=== PATIENT | male | born 1980 | race Caucasian/White ===

== ENCOUNTER → 2022-03-04 08:41 | Outpatient (BNVA) | payer OTHER, SELFPAY | PROVIDERS: PCP Family Medicine; Visit Provider Nurse Practitioner Family | DX: R56.9 Unspecified convulsions (principal); R25.1 Tremor, unspecified; F41.9 Anxiety disorder, unspecified; Z72.820 Sleep deprivation | CPT/HCPCS: 99202 ==

== ENCOUNTER 2022-03-30 13:02 | Outpatient (REF) | payer OTHER, SELFPAY ==
--- NOTE | 2022-03-30 13:07 | EEG_ITS ---
This is a 16-channel EEG with an EKG lead. The patient is reported awake during the tracing. Background EEG rhythm is low to medium amplitude fast with no obvious asymmetry or paroxysmal tendency. Photic stimulation does not produce any significant driving. Hyperventilation is not performed. Cardiac lead does not reveal any significant abnormality. IMPRESSION: Unremarkable EEG. MD JOSE JUAN Abad/ATUL / [id number]
== END 2022-03-30 13:03 | disposition home or self-care (01) ==
LOC: HO.NEURO 13:02
PROVIDERS: Visit Provider Nurse Practitioner Family
DX: R56.9 Unspecified convulsions (principal)
CPT/HCPCS: 95816

== ENCOUNTER 2022-04-04 10:27 | Outpatient (REF) | payer OTHER, SELFPAY ==
--- NOTE | ~2022-04-04 | MR_ITS ---
EXAMINATION: MRI OF THE BRAIN WITHOUT CONTRAST. CLINICAL INFORMATION: 41-year-old with unspecified convulsions. Self-reported history of seizures since 2019 on medication. COMPARISON: None TECHNIQUE: Multiplanar multisequence MR imaging of the brain was done without IV contrast. FINDINGS: Brain Volume: Within normal limits within the limitations of qualitative assessment. Structural: No malformations. Brain and Meninges: DWI sequence demonstrates no restricted diffusion to suggest acute or subacute cerebral ischemia. Gradient refocused imaging demonstrates no evidence for hemorrhage, hemosiderin staining or unusual/abnormal mineral deposition. The mesial temporal lobe structures are bilaterally symmetric and are normal in morphology and signal intensity. The brain parenchyma is normal in morphology and signal intensity. Quiles-white matter differentiation is well maintained. No extra-axial fluid collections, space-occupying process or mass effect are identified. Ventricles and Subarachnoid Spaces: The ventricular system and subarachnoid spaces are within normal limits without hydrocephalus. Orbital Structures: The visualized orbital structures are grossly unremarkable within the limitations of the study. Vascular: Signal voids are noted in the visualized major intracranial vessels. Osseous Structures, Sinuses/Mastoids, Extracranial Soft Tissues: Pansinus mucosal thickening is noted. Bony structures appear grossly intact. MR/MR head/brain wo con IMPRESSION: Normal noncontrast MRI of the brain.
== END 2022-04-04 10:28 | disposition home or self-care (01) ==
LOC: HO.MRI 10:27
PROVIDERS: Visit Provider Nurse Practitioner Family
DX: R56.9 Unspecified convulsions (principal); R25.1 Tremor, unspecified
CPT/HCPCS: 70551; 99212

== ENCOUNTER → 2022-06-06 13:06 | Outpatient (BNVA) | payer OTHER, SELFPAY | PROVIDERS: PCP Family Medicine; Visit Provider Nurse Practitioner Family | DX: R25.1 Tremor, unspecified (principal); R56.9 Unspecified convulsions; F41.9 Anxiety disorder, unspecified | CPT/HCPCS: 99212 ==

== ENCOUNTER → 2022-08-08 14:27 | Outpatient (BNVA) | payer OTHER, SELFPAY | PROVIDERS: PCP Family Medicine; Visit Provider Nurse Practitioner Family | DX: R25.1 Tremor, unspecified (principal); R56.9 Unspecified convulsions; F41.9 Anxiety disorder, unspecified; Z79.899 Other long term (current) drug therapy | CPT/HCPCS: 99212 ==

== ENCOUNTER → 2022-10-07 13:57 | Outpatient (BNVA) | payer OTHER, SELFPAY | PROVIDERS: PCP Family Medicine; Visit Provider Nurse Practitioner Family | DX: F41.9 Anxiety disorder, unspecified (principal); R25.1 Tremor, unspecified; R56.9 Unspecified convulsions | CPT/HCPCS: 99212 ==

== ENCOUNTER → 2022-12-09 14:25 | Outpatient (BNVA) | payer OTHER, SELFPAY | PROVIDERS: PCP Family Medicine; Visit Provider Nurse Practitioner Family | DX: F41.9 Anxiety disorder, unspecified (principal); R25.1 Tremor, unspecified; R56.9 Unspecified convulsions | CPT/HCPCS: 99212 ==

== ENCOUNTER 2023-02-17 14:22 | Outpatient (AMB) | payer OTHER, SELFPAY ==
[2023-02-17 14:24] VITALS: BP 110/84; PULSE 82; O2SAT 96; BMI 26.0
--- NOTE | 2023-02-17 14:24 | MHC.OFFVIS ---
Intake Vital Signs 02/17/23 14:24 Height 6 ft 2 in Weight 202 lb 4 oz BMI 26.0 BP 110/84 Blood Pressure Location Lt brachial Position Sitting Pulse 82 Pulse Source Pulse Oximeter Pulse Oximetry (%) 96 Oxygen Delivery Method Room Air Intake Visit Reasons: 2m f/u Tremor/HX of seizures Intake Note: Pt presents as a 2 month f/u for tremor, hx of seizures. Beam Saw Operator Required: No Allergies No Known Allergies Allergy (Verified 02/17/23 14:27) HPI HPI Comments History of Present Illness Details 42 y/o male patient presents for follow up of seizure and anxiety. Pt reports that he had 1 seizures on Jan 19 at the end of the day. He fell at the kitchen. He had aura before having seizure, but did not take clonazepam on time. Usually he takes clonazepam when he has aura and it prevents seizure. He uses clonazepam for panic attack also, it helps him to calm down and fall asleep. Pt reports he sleeps better than before with gabapentin 600 mg. He is on fluoxetine for anxiety. He stopped vaping since the last visit. Pt does not work or drive. [facility] Surgical History History of surgery on lower extremity No history of previous surgery Family History Mother No problems noted. Father No problems noted. Social History (Updated 02/17/23 @ 14:28 by Selma Doll CMA) Alcohol intake: former Patient Tobacco Use Status: Former Tobacco user Review of Systems Const All systems reviewed & are unremarkable except as noted in HPI and below ENT Reports Normal hearing present Neuro Reports Normal hearing present Physical Exam Vital Signs: Last Vital Signs Pulse 82 02/17/23 14:24 BP 110/84 02/17/23 14:24 Pulse Ox 96 02/17/23 14:24 Oxygen Delivery Method Room Air 02/17/23 14:24 BMI result Body Mass Index 26.0 Const General: cooperative and no acute distress Nutritional Appearance: average body habitus Orientation/consciousness: patient oriented x3 Limitations: other limitations (seizure) Neck Neck: Yes full ROM and Yes supple Neuro General: patient oriented x3, tone normal, moves all extremities and no focal motor deficits Cranial nerves: Yes Bilaterally intact EOM present, Yes Normal facial strength present, Yes Midline tongue present, Yes Normal hearing present, Yes Ability to bilaterally rotate head present and Yes Ability to bilaterally elevate shoulders present Cognition (Neuro): normal cognition Gait exam (Neuro): Other gait observations present (Pt mildy shaky with walking. ) Motor exam (neuro): 5/5 motor strength present throughout, Pronator motor function not present and Other motor observations present (mild bilateral hands posturing tremor) Deep tendon reflexes (DTR's): Right triceps reflex intensity grade: 2+, Left triceps reflex intensity grade: 2+, Rt Biceps (C5, C6): 2+, Left biceps reflex intensity grade: 2+, Right brachioradialis reflex intensity grade: 2+, Left brachioradialis reflex intensity grade: 2+, Right patellar reflex intensity grade: 2+ and Left patellar reflex intensity grade: 2+ Coordination: [id number] test normal Psych Appearance: grossly normal Speech and movement: Clear speech present Affect: Anxious affect present Attitude: cooperative Assessment & Plan Assessment & Plan (1) Anxiety: Code(s): F41.9 - Anxiety disorder, unspecified (2) Tremor: Code(s): R25.1 - Tremor, unspecified (3) Seizure: Code(s): R56.9 - Unspecified convulsions Plan Continue to take keppra 1000 mg BID and continue to take gabapentin to 600 mg qHS. Continue to use clonazepam as needed for panic attack. Medications: Refilled clonazepam 0.5 mg PO DAILY 30 tabs 0RF 30 days Coding Level of Care Code Est Pt Level 3 (51453) Diagnoses Anxiety F41.9 Tremor R25.1 Seizure R56.9
== END 2023-02-17 14:53 | disposition home or self-care (01) ==
PROVIDERS: Visit Provider Nurse Practitioner Family
DX: F41.9 Anxiety disorder, unspecified (principal); R25.1 Tremor, unspecified; R56.9 Unspecified convulsions
CPT/HCPCS: 99213

== ENCOUNTER → 2023-02-17 14:22 | Outpatient (BNVA) | payer OTHER, SELFPAY | PROVIDERS: Visit Provider Nurse Practitioner Family | DX: R56.9 Unspecified convulsions (principal); R25.1 Tremor, unspecified; F41.9 Anxiety disorder, unspecified; Z79.899 Other long term (current) drug therapy | CPT/HCPCS: 99212 ==

== ENCOUNTER 2023-05-08 09:19 | Outpatient (AMB) | payer OTHER, SELFPAY ==
--- NOTE | 2023-05-08 09:22 | MHC.OFFVIS ---
Intake Vital Signs 05/08/23 09:25 Weight 209 lb BP 102/82 Blood Pressure Location Lt brachial Position Sitting Pulse 91 Pulse Source Pulse Oximeter Pulse Oximetry (%) 98 Oxygen Delivery Method Room Air Intake Visit Reasons: 3m follow up Tremor/seizures Intake Note: F/U Tremors and seizure Director Of Rehabilitative Services Required: No Allergies No Known Allergies Allergy (Verified 05/08/23 09:22) Medication List - Last Reconciled 05/08/23 by Bev Live CNP amitriptyline 25 mg PO BEDTIME clonazepam 0.5 mg PO DAILY 30 days levetiracetam 1,000 mg PO BID 30 days HPI HPI Comments History of Present Illness Details 42 y/o male patient presents for follow up of seizure and anxiety. Pt reports he had a appendectomy on Mar 23. Pt also reports he had 6 seizures in March. apr 05, apr 07 and apr 27, , 16 He did not feel good before seizure, had palpitation, his heart rate went up to 120s even when he was rest. And he was shaky and lost consciousness. Seizure can happen anytime without triggers. He uses clonazepam for panic attack also, it helped to prevent seizure. However, he did not use clonazepam. He takes keppra 1000 mg BID and gabapentin 600 mg qHS. Pt reports he sleeps better than before with gabapentin 600 mg and amitriptyline 25 mg. [facility] Surgical History (Updated 05/08/23 @ 09:25 by Camryn Arroyo CMA) Hx of appendectomy History of surgery on lower extremity No history of previous surgery Family History Mother No problems noted. Father No problems noted. Social History (Updated 05/08/23 @ 09:25 by Camryn Arroyo CMA) Alcohol intake: former Patient Tobacco Use Status: Former Tobacco user Review of Systems Const All systems reviewed & are unremarkable except as noted in HPI and below ENT Reports Normal hearing present Neuro Reports Normal hearing present Physical Exam Vital Signs: Last Vital Signs Pulse 91 05/08/23 09:25 BP 102/82 05/08/23 09:25 Pulse Ox 98 05/08/23 09:25 Oxygen Delivery Method Room Air 05/08/23 09:25 Const General: cooperative and no acute distress Nutritional Appearance: average body habitus Orientation/consciousness: patient oriented x3 Limitations: other limitations (seizure) Neck Neck: Yes full ROM and Yes supple Neuro General: patient oriented x3, tone normal, moves all extremities and no focal motor deficits Cranial nerves: Yes Bilaterally intact EOM present, Yes Normal facial strength present, Yes Midline tongue present, Yes Normal hearing present, Yes Ability to bilaterally rotate head present and Yes Ability to bilaterally elevate shoulders present Cognition (Neuro): normal cognition Gait exam (Neuro): Other gait observations present (Pt mildy shaky with walking. ) Motor exam (neuro): 5/5 motor strength present throughout, Pronator motor function not present and Other motor observations present (mild bilateral hands posturing tremor) Deep tendon reflexes (DTR's): Right triceps reflex intensity grade: 2+, Left triceps reflex intensity grade: 2+, Rt Biceps (C5, C6): 2+, Left biceps reflex intensity grade: 2+, Right brachioradialis reflex intensity grade: 2+, Left brachioradialis reflex intensity grade: 2+, Right patellar reflex intensity grade: 2+ and Left patellar reflex intensity grade: 2+ Coordination: [id number] test normal Psych Appearance: grossly normal Speech and movement: Clear speech present Affect: Anxious affect present Attitude: cooperative Assessment & Plan Assessment & Plan (1) Seizure: Code(s): R56.9 - Unspecified convulsions Plan Increased keppra to 1200 mg BID and continue to take gabapentin to 600 mg qHS. Continue to use clonazepam as needed for panic attack and prevent seizure. Medications: New levetiracetam Take with keppra 1000 mg BID 250 mg PO BID 60 tabs 2RF 30 days Changed From levetiracetam 1,000 mg PO BID 30 days 60 tabs 2RF To levetiracetam 1,000 mg PO BID 60 tabs 2RF 30 days Refilled clonazepam 0.5 mg PO DAILY 30 tabs 0RF 30 days Coding Level of Care Code Est Pt Level 3 (59519) Diagnoses Seizure R56.9
[2023-05-08 09:25] VITALS: BP 102/82; PULSE 91; O2SAT 98
== END 2023-05-08 10:15 | disposition home or self-care (01) ==
PROVIDERS: PCP Family Medicine; Visit Provider Nurse Practitioner Family
DX: R56.9 Unspecified convulsions (principal)
CPT/HCPCS: 99213

== ENCOUNTER → 2023-05-08 09:19 | Outpatient (BNVA) | payer OTHER, SELFPAY | PROVIDERS: PCP Family Medicine; Visit Provider Nurse Practitioner Family | DX: R56.9 Unspecified convulsions (principal) | CPT/HCPCS: 99212 ==

== ENCOUNTER 2023-08-24 13:15 | Outpatient (AMB) | payer OTHER, SELFPAY ==
--- NOTE | 2023-08-24 13:28 | A.OFFVIS_ITS ---
Intake Vital Signs 08/24/23 13:45 Height 6 ft 2 in Weight 211 lb 4 oz BMI 27.1 BP 100/80 Blood Pressure Location Lt brachial Position Sitting Pulse 90 Pulse Source Pulse Oximeter Pulse Oximetry (%) 94 Oxygen Delivery Method Room Air Intake Visit Reasons: 2 mo f/u Tremor/Hx of Seizures - LVM Intake Note: Patient presents for 2 month f/u. week before Mayelin got very sick, high fever went to see doctor and was put on antibiotics. had 8 seizures within a week and half. Tremors are the same Allergies No Known Allergies Allergy (Verified 08/24/23 13:43) HPI HPI Comments History of Present Illness Details 42 y/o male patient presents for follow up of seizure and anxiety. Pt reports he had upper respiratory infection in June. He had high fever and had 8 seizures for 10 days. Now, his seizure frequency has subsided, had 2 seizures in July. He usually does not feel good before seizure, having palpitation, his heart rate went up to 120s even when he was rest. And then he is shaky and losing consciousness. Seizure can happen anytime without triggers. He uses clonazepam for panic attack also, it helped to prevent seizure. However, he did not use clonazepam, he did not ask refills. He takes keppra 1250 mg BID and compliant. Pt is followed by [facility] in [place]. [facility] Surgical History Hx of appendectomy History of surgery on lower extremity No history of previous surgery Family History Mother No problems noted. Father No problems noted. Social History Alcohol intake: former Patient Tobacco Use Status: Former Tobacco user Review of Systems Const All systems reviewed & are unremarkable except as noted in HPI and below ENT Reports Normal hearing present Neuro Reports Normal hearing present Physical Exam Vital Signs: Last Vital Signs Pulse 90 08/24/23 13:45 BP 100/80 08/24/23 13:45 Pulse Ox 94 08/24/23 13:45 Oxygen Delivery Method Room Air 08/24/23 13:45 BMI result Body Mass Index 27.1 Const General: cooperative and no acute distress Nutritional Appearance: average body habitus Orientation/consciousness: patient oriented x3 Limitations: other limitations (seizure) Neck Neck: Yes full ROM and Yes supple Neuro General: patient oriented x3, tone normal, moves all extremities and no focal motor deficits Cranial nerves: Yes Bilaterally intact EOM present, Yes Normal facial strength present, Yes Midline tongue present, Yes Normal hearing present, Yes Ability to bilaterally rotate head present and Yes Ability to bilaterally elevate shoulders present Cognition (Neuro): normal cognition Gait exam (Neuro): Other gait observations present (Pt mildy shaky with walking. ) Motor exam (neuro): 5/5 motor strength present throughout, Pronator motor function not present and Other motor observations present (mild bilateral hands posturing tremor) Deep tendon reflexes (DTR's): Right triceps reflex intensity grade: 2+, Left t riceps reflex intensity grade: 2+, Rt Biceps (C5, C6): 2+, Left biceps reflex intensity grade: 2+, Right brachioradialis reflex intensity grade: 2+, Left brachioradialis reflex intensity grade: 2+, Right patellar reflex intensity grade: 2+ and Left patellar reflex intensity grade: 2+ Coordination: [id number] test normal Psych Appearance: grossly normal Speech and movement: Clear speech present Affect: Anxious affect present Attitude: cooperative Assessment & Plan Assessment & Plan (1) Seizure: Code(s): R56.9 - Unspecified convulsions Plan Continue to take Keppra 1250 mg BID. Continue to use clonazepam as needed for panic attack and prevent seizure. Refer patient to [facility]. Orders: Referrals Neurology Referral R25.1 - Tremor, unspecified, R56.9 - Unspecified convulsions Medications: Refilled clonazepam 0.5 mg PO DAILY 30 days 30 tabs 3RF Coding Level of Care Code Est Pt Level 3 (31898) Diagnoses Seizure R56.9
[2023-08-24 13:45] VITALS: BP 100/80; PULSE 90; O2SAT 94; BMI 27.1
== END 2023-08-24 14:01 | disposition home or self-care (01) ==
PROVIDERS: PCP Family Medicine; Visit Provider Nurse Practitioner Family
DX: R56.9 Unspecified convulsions (principal)
CPT/HCPCS: 99213

== ENCOUNTER → 2023-08-24 13:15 | Outpatient (BNVA) | payer OTHER, SELFPAY | PROVIDERS: PCP Family Medicine; Visit Provider Nurse Practitioner Family | DX: R56.9 Unspecified convulsions (principal) | CPT/HCPCS: 99212 ==

== ENCOUNTER 2024-04-18 14:20 | Outpatient (AMB) | payer OTHER, SELFPAY ==
--- NOTE | 2024-04-18 14:23 | A.OFFVIS_ITS ---
Vital Signs 04/18/24 14:24 Height 6 ft 2 in Weight 206 lb 2 oz BMI 26.5 BP 124/70 Blood Pressure Location Rt brachial Position Sitting Respiration 16 Pulse 68 Pulse Source Palpation Intake Visit Reasons: 4m follow up Tremor/Hx of Seizures Intake Note: Pt presents for an 8 month follow up for seizures. Methods And Procedures Analyst Required: No Allergies No Known Allergies Allergy (Verified 04/18/24 14:23) Medication List - Last Reconciled 04/18/24 by Erin Hallman MD clonazepam 0.5 mg PO DAILY 30 days HPI Comments Details: 42 y/o male patient presents for follow up of nonepileptic seizures and anxiety.He had 5 day video EEG in October 2023 was normal . Multiple button pushes with no EEG correlate. He still has 1 -3 episode /month- now it is mostly at night. Once he feels - sees shadows moving and flies in his lateral visual field he takes clonazepam which resolves .The aura can last 30min to few hrs.His has witnessed generalized body shaking lasting less than 1 minutes. when he wakes up he is confused. No tongue biting or urinary incontinence. He falls during seizures. HE DOES NOT DRIVE sleep deprivation triggers seizures. He also reports difficulty falling and staying asleep, snoring and excessive daytime fatigue [facility] Medical History (Updated 04/18/24 @ 14:51 by Erin Hallman MD) Hypersomnia Snoring Seizures Surgical History Hx of appendectomy History of surgery on lower extremity No history of previous surgery Family History Mother No problems noted. Father No problems noted. Social History Alcohol intake: former Patient Tobacco Use Status: Former Tobacco user Review of Systems ENT Reports Normal hearing present Neuro Reports Normal hearing present Physical Exam Vital Signs: Last Vital Signs Pulse 68 04/18/24 14:24 Resp 16 04/18/24 14:24 BP 124/70 04/18/24 14:24 BMI result Body Mass Index 26.5 Const General: cooperative and no acute distress Nutritional Appearance: average body habitus Orientation/consciousness: patient oriented x3 Limitations: other limitations (seizure) Neck Neck: Yes full ROM and Yes supple Neuro General: patient oriented x3, tone normal, moves all extremities and no focal motor deficits Cranial nerves: Yes Bilaterally intact EOM present, Yes Normal facial strength present, Yes Midline tongue present, Yes Normal hearing present, Yes Ability to bilaterally rotate head present and Yes Ability to bilaterally elevate shoulders present Cognition (Neuro): normal cognition Gait exam (Neuro): Other gait observations present (Pt mildy shaky with walking. ) Motor exam (neuro): 5/5 motor strength present throughout, Pronator motor function not present and Other motor observations present (mild bilateral hands posturing tremor) Coordination: [id number] test normal Psych Appearance: grossly normal Speech and movement: Clear speech present Affect: Anxious affect present Attitude: cooperative Assessment & Plan Assessment & Plan (1) Seizures: Comment: epileptic vs non epileptic Code(s): R56.9 - Unspecified convulsions Category: Medical (2) Anxiety: Code(s): F41.9 - Anxiety disorder, unspecified Category: Medical (3) Snoring: Code(s): R06.83 - Snoring Category: Medical (4) Hypersomnia: Code(s): G47.10 - Hypersomnia, unspecified Category: Medical Plan He stopped levetiracetam as he did not notice any decrease in episodes. F/u cardiology for heart rhythm abnormalities I will trial him on carbamazepine XR 200mg bid NO DRIVING Sleep study to r/o sleep apnea Orders: Orders RT home sleep study Today G47.10 - Hypersomnia, unspecified, R06.83 - Snoring Medications: New carbamazepine ER 200 mg PO BID 60 caps 6RF Refilled clonazepam 0.5 mg PO DAILY 30 days 30 tabs 3RF Coding Level of Care Code Est Pt Level 4 (74960) Complex EM visit Add On G2211 Diagnoses Seizures R56.9 Anxiety F41.9 Snoring R06.83 Hypersomnia G47.10
[2024-04-18 14:24] VITALS: BP 124/70; PULSE 68; RESP 16; BMI 26.5
== END 2024-04-18 14:49 | disposition home or self-care (01) ==
PROVIDERS: PCP Family Medicine; Visit Provider Psychiatry & Neurology Neurology
DX: R56.9 Unspecified convulsions (principal); F41.9 Anxiety disorder, unspecified; R06.83 Snoring; G47.10 Hypersomnia, unspecified
CPT/HCPCS: 99214; G2211

== ENCOUNTER → 2024-04-18 14:20 | Outpatient (BNVA) | payer OTHER, SELFPAY | PROVIDERS: PCP Family Medicine; Visit Provider Psychiatry & Neurology Neurology | DX: R56.9 Unspecified convulsions (principal); R25.1 Tremor, unspecified; R06.83 Snoring; G47.10 Hypersomnia, unspecified; F41.9 Anxiety disorder, unspecified | CPT/HCPCS: 99212 ==

== ENCOUNTER → 2024-05-08 10:02 | Outpatient (REF) | payer OTHER, SELFPAY | LOC: HO.SL 10:02 | PROVIDERS: PCP Family Medicine; Visit Provider Psychiatry & Neurology Neurology | DX: G47.10 Hypersomnia, unspecified (principal); R06.83 Snoring | CPT/HCPCS: 95806 ==

== ENCOUNTER → 2024-05-08 10:21 | Outpatient (BNV) | payer OTHER, SELFPAY | PROVIDERS: PCP Family Medicine; Visit Provider Psychiatry & Neurology Neurology | DX: G47.10 Hypersomnia, unspecified (principal); R06.83 Snoring | CPT/HCPCS: 95806 ==

== ENCOUNTER 2024-07-24 13:20 | Outpatient (AMB) | payer OTHER, SELFPAY ==
--- NOTE | 2024-07-24 13:21 | A.OFFVIS_ITS ---
Vital Signs 07/24/24 13:22 Height 6 ft 2 in Weight 200 lb BMI 25.7 Intake Visit Reasons: 2m follow up Tremor/Hx of Seizures State Assessed Properties Director Required: No Accompanied by: Self / Same As Patient Allergies No Known Allergies Allergy (Verified 07/24/24 13:22) Medication List - Last Reconciled 07/24/24 by Erin Hallman MD carbamazepine ER 300 mg PO BID clonazepam 0.5 mg PO DAILY 30 days Do you need a note to return to daycare/school/sports/work: No HPI Comments Details: 43 y/o male patient calls for follow up of nonepileptic seizures and anxiety.[facility]. He had 5 day video EEG in October 2023 was normal . Multiple button pushes with no EEG correlate. He still has 1 -3 episode /month- now it is mostly at night. Once he feels - sees shadows moving and flies in his lateral visual field he takes clonazepam which resolves .The aura can last 30min to few hrs.His has witnessed generalized body shaking lasting less than 1 minutes. when he wakes up he is confused. No tongue biting or urinary incontinence. He falls during seizures. HE DOES NOT DRIVE sleep deprivation triggers seizures. [facility] Medical History Hypersomnia Snoring Seizures Surgical History Hx of appendectomy History of surgery on lower extremity No history of previous surgery Family History Mother No problems noted. Father No problems noted. Social History Alcohol intake: former Patient Tobacco Use Status: Former Tobacco user Physical Exam Vital Signs: BMI result Body Mass Index 25.7 Telehealth Telehealth Telehealth Platform: Telephone Location of provider rendering services: practice address Location of patient: address on file Patient Identification confirmed using: Name, : Yes Telehealth method: voice only Patient verbally consented to treatment: Yes Patient verbally consented to billing insurance company: Yes Patient informed of any privacy concerns related to visit: Yes Minutes spent on Phone/Video with Pt.: 16 Assessment & Plan Assessment & Plan (1) Seizures: Comment: epileptic vs non epileptic Code(s): R56.9 - Unspecified convulsions Category: Medical (2) Anxiety: Code(s): F41.9 - Anxiety disorder, unspecified Category: Medical Plan F/u cardiology for heart rhythm abnormalities Increase Carbamazepine XR 300mg bid NO DRIVING Sleep study - normal F/U [facility] for further management. [facility] CMP in 1 month to monitor Orders: Orders Comprehensive Met. Panel 1 Month R56.9 - Unspecified convulsions Complete Blood Count Auto Diff 1 Month R56.9 - Unspecified convulsions Medications: Changed From carbamazepine ER 200 mg PO BID 60 caps 6RF To carbamazepine ER 300 mg PO BID 60 caps 6RF Coding Level of Care Code Tele Est Pt Level 4 (50110) Diagnoses Seizures R56.9 Anxiety F41.9
[2024-07-24 13:22] VITALS: BMI 25.7
== END 2024-07-25 14:57 | disposition home or self-care (01) ==
PROVIDERS: PCP Family Medicine; Visit Provider Psychiatry & Neurology Neurology
DX: R56.9 Unspecified convulsions (principal); F41.9 Anxiety disorder, unspecified
CPT/HCPCS: 99214

== ENCOUNTER → 2024-07-24 13:20 | Outpatient (BNVA) | payer OTHER, SELFPAY | PROVIDERS: PCP Family Medicine; Visit Provider Psychiatry & Neurology Neurology | DX: R56.9 Unspecified convulsions (principal); R25.1 Tremor, unspecified ==